=== PATIENT | female | born 2000 | race Caucasian/White ===

== ENCOUNTER 2024-09-11 08:11 | Day surgery (SDC) | payer BC ==
[~2024-09-11 08:11] MED LIST: Lidocaine 1% 10 ML MDV ONE; Lidocaine 1% 5 ML VIAL ONE; Midazolam 1 MG/ML 2 ML SDV ONE; Ondansetron 4 MG/2 ML SDV ONE; Propofol 200 MG/20 ML SDV ONE; Sodium Chloride 0.9% 10 ML Syringe FLUSH PRN; Sodium Chloride 0.9% 10 ML Syringe FLUSH SCH; fentaNYL 250 MCG/5 ML SDV ONE
[2024-09-11] MEDS: Lactated Ringers 1,000 ML IV SCH (08:30)
[2024-09-11] MEDS ORDERED: Dexamethasone 4 MG/ML 5 ML MDV ONE (08:47)
[2024-09-11] MEDS ORDERED: Ondansetron 4 MG/2 ML SDV ONE (08:47)
[2024-09-11] MEDS: Doxycycline Monohydrate 100 MG Cap PO ONE ×2 (08:50→11:15)
[2024-09-11] MEDS ORDERED: Ketorolac 30 MG/ML SDV ONE (09:31)
== END 2024-09-11 12:45 | disposition home or self-care (01) ==
LOC: JD.SDS 08:11
PROVIDERS: ATTEND Obstetrics & Gynecology
DX: O72.2 Delayed and secondary postpartum hemorrhage (principal)
CPT/HCPCS: 59160; A9270; J1100; J1885; J2250; J2405; J2704; J3010; J7120; J3490